=== PATIENT | female | born 1980 | race Caucasian/White ===

== ENCOUNTER 2018-02-19 19:05 | Emergency (ER) | payer BC ==
[2018-02-19] MEDS ORDERED: LEXAPRO20 M1 PO (19:22)
[2018-02-19] MEDS ORDERED: SEROQUEL 2525 MG/TAB PO (19:30)
[2018-02-19 20:45] LABS: EOS # 0.3 (0.04-0.40); EOS % 3.2 % (1.0-5.0); HEMATOCRIT 38.9 % (37.0-47.0); HEMOGLOBIN 12.8 g/dL (12.5-16.0); LYMPH# 3.6 (1.50-4.00); MEAN CELL VOLUME 89 fl (78-100); MEAN CORPUSCULAR HEMOGLOBIN 29 pg (27-31); MEAN CORPUSCULAR HGB CONC 33 g/dL (33-37); MEAN PLATELET VOLUME 8.8 fl (7.4-10.4); MONO # 0.6 (0.20-0.80); NEU # 5.7 (1.40-6.50); PLATELET COUNT 429 K/mm3 (130-400); RED BLOOD COUNT 4.38 M/mm3 (4.10-5.30); RED CELL DISTRIBUTION WIDTH 13.5 % (11.5-14.5); WHITE BLOOD COUNT 10.3 K/mm3 (4.8-10.8)
[2018-02-19 21:00] LABS: URINE APPEARANCE HAZY; URINE COLOR YELLOW
[2018-02-19 21:01] LABS: PH-URINE 6.5 (5.0 - 8.0); URINE BILIRUBIN NEGATIVE (NEGATIVE); URINE BLOOD NEGATIVE (NEGATIVE); URINE GLUCOSE NEGATIVE (NEGATIVE); URINE KETONE NEGATIVE (NEGATIVE); URINE LEUKOCYTE ESTERASE NEGATIVE (NEGATIVE); URINE MUCUS PRESENT (NOT PRESENT); URINE NITRATE NEGATIVE (NEGATIVE); URINE PROTEIN(semi-quant) NEGATIVE (NEGATIVE); URINE UROBILINOGEN NORMAL (NORMAL); URINE WBC 0-1 /hpf (0-3)
[2018-02-19 21:30] VITALS: BP 112/80
== END 2018-02-19 21:30 | disposition home or self-care (01) ==
LOC: ED 19:05
PROVIDERS: Family Medicine
DX: R10.12 Left upper quadrant pain (principal); Z79.899 Other long term (current) drug therapy

== ENCOUNTER 2020-10-19 19:33 | Emergency (ER) | payer BC ==
[~2020-10-19] VITALS: Ht 167.6 cm; Wt 78.2 kg
[~2020-10-19 19:33] MED LIST: LEXAPRO20 M1 PO; SEROQUEL 2525 MG/TAB PO
[2020-10-19 19:59] VITALS: BP 144/97
[2020-10-19] MEDS ORDERED: ADDERALL 10 MG10 MG PO (20:09)
[2020-10-19] MEDS ORDERED: SPIRONOLACTONE50 M1 PO (20:09)
[2020-10-19] MEDS ORDERED: VIBRAMYCIN HYC100 MG PO (20:10)
[2020-10-19] MEDS ORDERED: VITAMIN D31250 MCG PO (20:11)
[2020-10-19] MEDS ORDERED: NATURAL IRON65 MG PO (20:11)
[2020-10-19] MEDS ORDERED: ROGAINE60 ML TP (20:11)
[2020-10-19] MEDS ORDERED: NATURE'S BLE1000 MCG PO (20:12)
== END 2020-10-19 20:38 | disposition home or self-care (01) ==
LOC: ED 19:33
DX: S61.012A Laceration without foreign body of left thumb without damage to nail, initial encounter (principal); F90.9 Attention-deficit hyperactivity disorder, unspecified type; Z79.899 Other long term (current) drug therapy; W26.8XXA Contact with other sharp object(s), not elsewhere classified, initial encounter

== ENCOUNTER 2021-01-27 18:48 | Emergency (ER) | payer BC ==
[~2021-01-27] VITALS: Ht 167.6 cm; Wt 78.2 kg
[~2021-01-27 18:48] MED LIST changes: +ADDERALL 10 MG10 MG PO; +NATURAL IRON65 MG PO; +NATURE'S BLE1000 MCG PO; +ROGAINE60 ML TP; +SPIRONOLACTONE50 M1 PO; +VIBRAMYCIN HYC100 MG PO; +VITAMIN D31250 MCG PO
[2021-01-27] MEDS ORDERED: MYRBETRIQ50 MG PO (19:09)
[2021-01-27] MEDS ORDERED: SPIRONOLACTONE100 MG PO (19:09)
[2021-01-27] MEDS ORDERED: MORGIDOX 1X100100 MG PO (19:10)
[2021-01-27 20:37] VITALS: BP 116/86
== END 2021-01-27 20:38 | disposition home or self-care (01) ==
LOC: ED 18:48
DX: S61.012A Laceration without foreign body of left thumb without damage to nail, initial encounter (principal); S93.401A Sprain of unspecified ligament of right ankle, initial encounter; S06.0X0A Concussion without loss of consciousness, initial encounter; W10.8XXA Fall (on) (from) other stairs and steps, initial encounter; W01.198A Fall on same level from slipping, tripping and stumbling with subsequent striking against other object, initial encounter; Y93.02 Activity, running